=== PATIENT | female | born 1950 | race Caucasian/White ===

== ENCOUNTER → 2017-02-10 | Outpatient (CLI) | payer OTHER | END | disposition home or self-care (01) | LOC: NUC 07:48 | DX: C7A.090 Malignant carcinoid tumor of the bronchus and lung (principal); C79.51 Secondary malignant neoplasm of bone; C78.7 Secondary malignant neoplasm of liver and intrahepatic bile duct; Z92.29 Personal history of other drug therapy | CPT/HCPCS: 78804; 78999; A9572 ==

== ENCOUNTER 2017-07-28 07:44 | Outpatient (CLI) | payer OTHER | END 2017-07-29 11:59 | disposition home or self-care (01) | LOC: NUC 07:44 | DX: C7B.02 Secondary carcinoid tumors of liver (principal); C7B.03 Secondary carcinoid tumors of bone; R93.8 Abnormal findings on diagnostic imaging of other specified body structures; Z92.21 Personal history of antineoplastic chemotherapy | CPT/HCPCS: 78804; 78999; A9572 ==